=== PATIENT | female | born 1995 | race American Indian/Alaskan Native ===

== ENCOUNTER 2017-12-21 19:05 | Emergency (ER) | payer SELFPAY ==
[2017-12-21 19:10] VITALS: BP 114/64
== END 2017-12-21 20:00 | disposition left against medical advice (07) ==
LOC: ED 19:05
DX: J00 Acute nasopharyngitis [common cold] (principal); Z53.21 Procedure and treatment not carried out due to patient leaving prior to being seen by health care provider